=== PATIENT | male | born 1945 | race Hispanic/Latino ===

== ENCOUNTER 2018-07-02 11:15 | Outpatient (CLI) | payer MEDICARE ==
--- NOTE | 2018-07-02 12:53 | XRay Report ---
Thoracic spine 2 views: Findings: Normal height of vertebral bodies. Decrease in height of intervertebral disc spaces. Sclerotic articular surfaces with peripheral osteophytes suggestive of severe degenerative changes being most pronounced in the mid thoracic spine. Impression: Degenerative dorsal spine.
== END 2018-07-02 11:16 | disposition home or self-care (01) ==
LOC: SPVIMAG 11:15
PROVIDERS: ATTEND Internal Medicine Rheumatology
DX: M25.78 Osteophyte, vertebrae (principal)
CPT/HCPCS: 72072